=== PATIENT | male | born 1985 | race Caucasian/White ===

== ENCOUNTER 2018-05-21 02:14 | Emergency (ER) | payer MEDICAID ==
[~2018-05-21] VITALS: Ht 195.6 cm; Wt 75.0 kg
[2018-05-21 02:20] VITALS: BP 133/60; TEMP 98.9
[2018-05-21] MEDS ORDERED: ILOTYCIN5 MG/GM OP (02:50)
[2018-05-21] MEDS ORDERED: CIPRODEX OT (02:50)
[2018-05-21] MEDS ORDERED: CILOXAN 10 ML10 ML OD (03:04)
[2018-05-21 03:47] VITALS: PULSE 85
== END 2018-05-21 03:47 | disposition home or self-care (01) ==
LOC: COL.ER 02:14
DX: H60.91 Unspecified otitis externa, right ear (principal); H10.9 Unspecified conjunctivitis; F17.210 Nicotine dependence, cigarettes, uncomplicated

== ENCOUNTER 2019-11-12 14:23 | Emergency (ER) | payer SELFPAY ==
[~2019-11-12] VITALS: Ht 195.6 cm; Wt 77.3 kg
[~2019-11-12 14:23] MED LIST: CILOXAN 10 ML10 ML OD; CIPRODEX OT; ILOTYCIN5 MG/GM OP
[2019-11-12 14:30] VITALS: BP 126/80; TEMP 98.1
[2019-11-12] MEDS ORDERED: CEPHALEXIN500 M1 PO (15:10)
[2019-11-12] MEDS ORDERED: BACTRIM DS 8001 TAB PO (15:10)
[2019-11-12 15:32] VITALS: PULSE 78
== END 2019-11-12 15:30 | disposition home or self-care (01) ==
LOC: COL.ER 14:23
DX: L55.1 Sunburn of second degree (principal); L08.9 Local infection of the skin and subcutaneous tissue, unspecified; Z23 Encounter for immunization